=== PATIENT | male | born 1945 | race Caucasian/White ===

== ENCOUNTER 2016-08-06 08:11 | Day surgery (SDC) | payer MEDICARE, OTHER ==
[~2016-08-06] VITALS: Ht 172.7 cm; Wt 101.6 kg
[~2016-08-06 08:11] MED LIST: 0.9% Sodium Chloride 1,000 ML IV SCH; AMLO10TA3 PO; ASPI-973 PO; ATEN100T PO; DOXA4TAB2 PO; HYDR12.55 PO; LISI40TA PO; SIMV40TA5 PO; Sodium Chloride LOK Flush 10 mL Syringe IV PRN; TADA20TA PO; fentaNYL-PF 50 mCg/mL 2 mL Inj IVPUSH PRN
[2016-08-06 08:45] VITALS: BP 133/80; PULSE 65; RESP 16; O2SAT 96
[2016-08-06 10:03] VITALS: BP 132/82; PULSE 66; RESP 14; O2SAT 95
[2016-08-06 10:13] VITALS: BP 112/70; PULSE 81; RESP 14; O2SAT 95
[2016-08-06 10:16] VITALS: BP 115/77; PULSE 86; RESP 16; O2SAT 96
--- NOTE | 2016-08-06 10:45 | ENDO ---
[address] [address] ENDOSCOPY PROCEDURE PATIENT: TORSTEN BETTS : 1945 MR#: [id number] ADMIT: 08/06/2016 JOB ID: [id number] DATE OF SERVICE: 08/06/2016 PREOPERATIVE DIAGNOSIS: Screening colonoscopy. POSTOPERATIVE DIAGNOSES: 1. Cecal polyp. 2. Diffuse diverticulosis. OPERATION: Colonoscopy to cecum with snare polypectomy with cautery. SURGEON: Buck Sotelo MD. INDICATIONS: The patient is a 71-year-old man for screening colonoscopy. He has a past history of colon polyps but the most recent one demonstrated no polyps. After discussing options with the patient and obtaining informed consent, it was elected to proceed. FINDINGS: He had a fair prep. He has diffuse diverticulosis, and the resultant fecaliths did impair visualization. The scope was advanced to the cecum with clear visualization of the appendiceal orifice. Just adjacent to the appendiceal orifice was an adenomatous appearing polyp measuring approximately 5-6 mm. Using cautery with snare, it was removed, aspirated and submitted to Pathology. No other polyps were identified. Retroflexed views of the rectum were normal. WITHDRAWAL TIME: 12 minutes 49 seconds. DESCRIPTION OF PROCEDURE: The procedure and sedation plan and informed consent was obtained with the patient. A procedural time-out was held. He received 2 mg of Versed and 50 mcg of fentanyl. Digital rectal exam was performed. The Olympus PCF-H180AL video colonoscope was passed transanally, advanced to the cecum. As stated above, an adenomatous appearing polyp adjacent to the appendiceal orifice was identified. Using a snare with cautery it was removed and submitted to Pathology. No other polyps were identified. There were no apparent complications. The patient tolerated the procedure well, and carried on a conversation throughout the procedure, demonstrating no evidence of pain or discomfort. IMPRESSION: 1. Cecal polyp. 2. Diffuse diverticulosis. RECOMMENDATIONS: Repeat colonoscopy in five years.
--- NOTE | 2016-08-07 14:21 | PATH ---
SURGICAL PATHOLOGY Attending Physician:Alex Donald CASE STATUS: Signed Out PATIENT NAME: TORSTEN BETTS PID: [id number] : 1945 DATE COLLECTED:08/06/2016 17:26 SPECIMEN: Colon, Biopsy CLINICAL HISTORY: 1). CECAL POLYP X1 FINAL DIAGNOSIS: 1.CECAL POLYP: SESSILE SERRATED ADENOMA. ICD10 CODE D12.0 GROSS DESCRIPTION: The specimen is received in one formalin filled container labeled with the patient's name, sublabeled "cecal polyp x1" and consists of 2 portions of tissue which aggregate to 0.4 x 0.4 x 0.3 CM. The specimen a is entirely submitted in one cassette. 08/06/2016 DAC MICRO DESCRIPTION: See diagnosis. ICD-9 CODES: CPT CODES: 1: 10173 Electronically Signed Out Will Gonzalez MD [facility] Pathology [facility] [address], [place] [address] Technical component performed at [facility], [facility] [address], [place], [address]
== END 2016-08-06 23:59 | disposition home or self-care (01) ==
LOC: END 08:11
PROVIDERS: ATTEND Surgery
DX: Z12.11 Encounter for screening for malignant neoplasm of colon (principal); D12.0 Benign neoplasm of cecum; K57.30 Diverticulosis of large intestine without perforation or abscess without bleeding; I10 Essential (primary) hypertension; E78.00 Pure hypercholesterolemia, unspecified; N40.1 Benign prostatic hyperplasia with lower urinary tract symptoms; Z79.82 Long term (current) use of aspirin
CPT/HCPCS: 45385; 88305; G0500; J2250; J3010; J7030